=== PATIENT | female | born 1985 | race Hispanic/Latino ===

== ENCOUNTER 2019-12-26 03:25 | Inpatient (IN) | payer BC ==
[2019-12-26] MEDS ORDERED: Penicillin G Potassium 5 MILL.UNITS in Sodium Chloride 0.9% 100 ML IVPB SCH (04:00)
[2019-12-26] MEDS ORDERED: Lactated Ringer's 1,000 ML IV SCH (04:01)
[2019-12-26] MEDS ORDERED: Promethazine HCl 25 MG/ML VIAL IM PRN (04:01)
[2019-12-26] MEDS ORDERED: Ondansetron PF 4 MG/2 ML Vial IVP PRN (04:01)
[2019-12-26] MEDS ORDERED: Lactated Ringer's 1,000 ML IV PRN (04:03)
[2019-12-26] MEDS: Butorphanol Tartrate 1 MG/ML VIAL SLOW IVP PRN ×3 (04:11→06:37)
[2019-12-26 04:23] VITALS: BMI 29.6
[2019-12-26 04:29] LABS: Mean Corpuscular HGB CONC 34.2 g/dL (32.0-36.0); Mean Corpuscular Hemoglobin 31.2 pg (27.0-31.0); Mean Corpuscular Volume 91.4 fL (78.0-98.0); Mean Platelet Volume 8.8 fL (7.4-10.4); Platelet Count 224 thou/uL (130-400); RBC Distribution Width 14.3 % (11.5-14.5); Red Blood Cell (RBC) Count 4.16 mill/uL (4.20-5.40); White Blood Cell (WBC) Count 14.2 thou/uL (4.8-10.8)
[2019-12-26 05:11] LABS: Syphilis Antibody Nonreactive (Nonreactive); Syphilis Antibody Index 0.03 S/CO (<1.00 Non-Reactive)
[2019-12-26 05:12] LABS: HBSAg Index 0.17 S/CO (0-0.99); Hep B Surf Ag Non-Reactive S/CO (NonReactive)
[2019-12-26] MEDS ORDERED: NS / Oxytocin 40 units/1000ml 1,000 ML ONE (06:58)
[2019-12-26] MEDS ORDERED: Lidocaine 1% (PF) 30 ML VIAL ONE (06:58)
[2019-12-26] MEDS ORDERED: NS w/ Oxytocin 10 units 500 ML IVPB SCH (07:15)
[2019-12-26] MEDS ORDERED: NS / Oxytocin 40 units/1000ml 1,000 ML IV SCH ×2 (07:15→10:32)
--- NOTE | 2019-12-26 08:05 | PDOC.LDHP ---
Labor and Delivery H&P Chief complaint: contractions HPI: patient started having contractions and arrived to the L&D around 4 am. Denies LOF, VB. Current gestational age (weeks): 39 Due date: 01/04/20 Dating criteria: first trimester ultrasound Grav: 5 Para: 4 OB History Details: 2002 41w 8lbs 2005 39 w 9.4 2009 39w 8lb 2011 40w 9.5 Current complications: other (AMA) Abnormal US findings: Yes (on 12/25/19 BPD/HC <1%ile. TORCH labs ordered) Past Medical History: Kidney stone analysis and removal Current medications: pre- vitamins, other (81 mg ASA) Allergies/Adverse Reactions: Allergies Allergy/AdvReac Type Severity Reaction Status Date / Time No Known Drug Allergies Allergy Verified 12/26/19 04:09 Social history: none - Physical Exam Vital signs reviewed and normal: yes General: breathing through contractions Lungs: nonlabored breathing Abdomen: gravid FHT: category 1 - Vaginal Exam cm dilated: 8 Effacement: 100% Station: 0 - OB Labs Blood type: O RH: positive Antibody Screen: negative HIV: negative RPR: negative HEPSAg: negative 1 hour GCT: negative GBS: positive Urine drug screen: negative Rubella: immune - Assessment L&D Assessment: term patient in labor - Plan Plan: admit to L&D, GBS antibiotic prophylaxis, informed consent obtained, anesthesia consult for pain management
--- NOTE | 2019-12-26 08:59 | PDOC.OPDEL ---
OB Operative/Delivery Note Delivery Dr/Surgeon: light Pre-Delivery Diagnosis: active labor Procedure/Post Delivery Dx: spontaneous vaginal delivery Weeks gestation: 38 Anesthesia: local - Findings A Sex: female Weight: 7 lb 2 oz - 1 min: 8 - 5 min: 9 - Additional Findings/Plan Placenta delivered: manual removal Repaired Obstetrical Laceration: 1st degree Post delivery plan: routine recovery
[2019-12-26] MEDS ORDERED: Penicillin G 2.5 MILL.units 50 ML IVPB SCH (09:00)
[2019-12-26] MEDS: Ibuprofen 800 MG TAB PO SCH ×2 (09:34→20:48)
[2019-12-26] MEDS ORDERED: Lanolin Ointment 7 GM TUBE TOP PRN (10:32)
[2019-12-26] MEDS ORDERED: hydrALAZINE 20 MG/ML VIAL SLOW IVP PRN (10:32)
[2019-12-26] MEDS ORDERED: Benzocaine-Menthol 82.5 ML CAN TOP PRN (10:32)
[2019-12-26] MEDS ORDERED: Milk Of Magnesia 30 ML UDCUP PO PRN (10:32)
[2019-12-26] MEDS ORDERED: HYDROcodone/Acetaminophen 5/325 mg Tablet PO PRN (10:32)
[2019-12-26] MEDS ORDERED: Bisacodyl 10 MG SUPP PR PRN (10:32)
[2019-12-26] MEDS ORDERED: Adacel (T-DAP) 0.5 ML SYRINGE IM ONE (10:32)
[2019-12-26] MEDS: Ferrous Sulfate 325 MG TAB PO SCH (14:50)
[2019-12-26] MEDS: HYDROcodone/Acetaminophen 5/325 mg Tablet PO PRN (17:10)
[2019-12-26] MEDS: Docusate Calcium (SURFAK) 240 MG CAP PO SCH (20:48)
[2019-12-27] MEDS: HYDROcodone/Acetaminophen 5/325 mg Tablet PO PRN ×2 (05:16→09:04)
[2019-12-27] MEDS: Ibuprofen 800 MG TAB PO SCH ×2 (05:16→13:35)
[2019-12-27] MEDS: Ferrous Sulfate 325 MG TAB PO SCH (07:29)
[2019-12-27 08:17] VITALS: BP 122/57; TEMP 98.1
[2019-12-27] MEDS: Docusate Calcium (SURFAK) 240 MG CAP PO SCH (09:04)
== END 2019-12-27 17:30 | disposition home or self-care (01) | DRG 807 ==
LOC: L&D/OP 03:25 → L&D 08:58 → 3SW 10:56
PROVIDERS: ADMIT Obstetrics & Gynecology; ATTEND Obstetrics & Gynecology
PROC: 10E0XZZ Delivery of Products of Conception, External Approach (ICD-10-PCS; principal; 2019-12-26)
PROC: 0HQ9XZZ Repair Perineum Skin, External Approach (ICD-10-PCS; 2019-12-26)
DX: O99.824 Streptococcus B carrier state complicating childbirth (principal); Z37.0 Single live birth; Z3A.39 39 weeks gestation of pregnancy; O70.0 First degree perineal laceration during delivery
CPT/HCPCS: 36415; 85027; 86644; 86696; 86698; 86762; 86777; 86780; 86850; 86900; 86901; 87340; 99285; J0595; J2001; J2405; J2540; J3490